=== PATIENT | female | born 1970 | race Two or more races ===

== ENCOUNTER 2025-04-07 16:48 | Emergency (ER) | payer BC, SELFPAY ==
[2025-04-07 16:56] VITALS: BP 124/80
--- NOTE | 2025-04-07 18:07 | ED.GENMED ---
History of Present Illness
General
Chief Complaint: Musculo-Skeletal Complaint
Time Seen by Provider: 04/07/25 17:51
History of Present Illness
History of Present Illness:
54-year-old female with history of hypertension and [id number] diabetes presents for evaluation of nontraumatic right middle foot pain for the past 3 days. She does note that she recently began exercise routine but denies known injury.
She is having difficulty walking secondary to pain. No distal paresthesias, no pain at the base of the foot or the heel. No fever
Review of Systems
Review of Systems
Allergies reviewed?: Yes
All Other Systems: ROS reviewed and negative except as documented in HPI and ROS
Phy Exam
Physical Exam
Physical Exam:
GEN: Well appearing, NAD, WDWN
HEENT: Oral mucosa moist, no scleral icterus
Cardiac: Regular rate
Lung: No respiratory distress, no tachypnea
MSK: No gross deformity or injuries. Tenderness to the right midfoot along the deltoid ligament, no palpable deformities, no other bony tenderness elicited
Skin: Good color, no pallor or jaundice, no rashes
Neuro: AO x3, moves all extremities freely
Psych: Calm, cooperative
Course
Orders/Labs/Results
Orders:
Orders
04/07/25 17:00
Foot, Right 3 View [CR Foot - Right Min 3 Views] Urgent
Comment:
Reason For Exam: pain no injury
Vital Signs
Initial and Last Documented VS:
Initial Vital Signs
Temp Pulse Resp BP Pulse Ox
98.0 F 80 16 124/80 99
04/07/25 16:56 04/07/25 16:56 04/07/25 16:56 04/07/25 16:56 04/07/25 16:56
Last Documented Vital Signs
Temp Pulse Resp BP Pulse Ox
98.0 F 80 16 124/80 99
04/07/25 16:56 04/07/25 16:56 04/07/25 16:56 04/07/25 16:56 04/07/25 18:09
MDM/Problems Addressed
MDM/Problems Addressed:
X-rays independently interpreted by me are negative for fracture. Likely soft tissue injury related to recent increased exertion. Discussed supportive care, recommend short duration NSAID use
*Pulse Oximetry
SaO2: 99
Oxygen Mode of Delivery: Room air
Patient hypoxic: no
*Critical Care Note
Total Time (30-74mins, 75-104mins- exclusive of procedures): Not Applicable
ED Attending Note
-
Portions of this chart may have been created with voice recognition software.� Occasional wrong word or��sound alike� substitutions may have occurred due to the inherent limitations of voice recognition software.
Discharge Plan
Departure
Patient Disposition: Home (Routine Discharge)
Date of Disposition: 04/07/25
Time of Disposition: 18:08
Patient with high blood pressure during this ER visit?: No
Discharge Problem:
Acute pain of right foot
Instructions: Foot sprain - ED (DC)
Referrals:
Mary Polanco DPM [Active, Podiatry]
Activity Restrictions/Additional Instructions:
Ibuprofen 600mg every 6-8 hours for 3-5 days
Ice after activity
Use SAMINA wrap for support during activity
Follow up with Orthopedic/disability specialist if worsening
Interventions
Interventions:
*Risk Screen - Suicide Last Done: 04/07/25 16:56
*Neglect/Abuse Screening Last Done: 04/07/25 16:56
*Nursing Disposition Last Done: 04/07/25 18:27
ED-Musculoskeletal Assessment Last Done: 04/07/25 17:30
Discharge Date and Time
Discharge Date/Time: 04/07/25 18:27
Print Language: FILIPINO
== END 2025-04-07 18:27 | disposition home or self-care (01) ==
LOC: EMR 16:48
PROVIDERS: EMERGENCY PHYSICIAN Emergency Medicine
DX: M25.571 Pain in right ankle and joints of right foot (principal); E11.9 Type 2 diabetes mellitus without complications; I10 Essential (primary) hypertension
CPT/HCPCS: 99283; 73630